=== PATIENT | male | born 1965 | race Hispanic/Latino ===

== ENCOUNTER 2017-04-03 23:50 | Emergency (ER) | payer BC ==
--- NOTE | 2017-04-04 00:08 | ED PDOC ---
HPI: SOB/CHF/COPD Time Seen by Provider: 04/03/17 23:58 Chief Complaint (Nursing): Shortness Of Breath Chief Complaint (Provider): SOB History Per: Patient Additional Complaint(s): Pt is a 51 yo male, PMH of CAD s/p 2 stents placed, High Cholesterol, presents with complaints of SOB. Pt states that he is currently undergoing allergy testing and had skin patches placed yesterday. Pt concnered he might be having a reaction to something. No chest pain or palpitations. Pt also reports having a headache all day. No swelling or rash. Past Medical History Reviewed: Nursing Documentation, Vital Signs Vital Signs: Last Vital Signs Temp 98.2 F 04/04/17 00:10 Pulse 56 L 04/04/17 00:10 Resp 22 04/04/17 01:36 BP 122/72 04/04/17 00:10 Pulse Ox 96 04/04/17 01:36 - Medical History PMH: CAD (w/ [place] in 2000), Hyperlipidemia Denies: Arthritis, CHF, COPD, HIV, HTN, Hypercholesterolemia, Hypothyroidism , Rheumatoid Arthritis - Surgical History Surgical History: Coronary Stent (x3) - Family History Family History: States: Unknown Family Hx - Home Medications Home Medications: Ambulatory Orders Medication Instructions Recorded Aspirin [Aspirin Chewable] 81 mg PO DAILY #0 chew 09/03/15 Atorvastatin [Lipitor] 40 mg PO HS #0 tab 09/03/15 Cephalexin [cephalexin] 500 mg PO BID #10 cap 09/03/15 Clopidogrel [Plavix] 75 mg PO DAILY #0 tab 09/03/15 Ezetimibe [Zetia] 10 mg PO HS #0 tab 09/03/15 Ketorolac Tromethamine [Toradol] 30 mg PO Q6H PRN #0 tab 09/03/15 Metoprolol Tartrate [Lopressor] 25 mg PO HS #0 tab 09/03/15 Sertraline [Zoloft] 100 mg PO HS #0 tab 09/03/15 oxyCODONE/Acetaminophen [Percocet 1 ea PO Q6H PRN #15 tab 03/06/16 5/325 mg Tab] Methylprednisolone [Medrol Dose 4 mg PO DAILY #21 mg 04/04/17 Pack (21 tabs)] - Allergies Allergies/Adverse Reactions: Allergies Allergy/AdvReac Type Severity Reaction Status Date / Time No Known Allergies Allergy Verified 09/01/15 16:46 Wells Criteria for PE - Wells Criteria for Pulmonary Embolism Clinical Signs and Symptoms of DVT: No P.E is #1 Diagnosis, or Equally Likely: No Heart Rate >100: No Immobilization at least 3 days;Surgery previous 4 weeks: No Previous, objectively diagnosed PE or DVT: No Hemoptysis: No Malignancy w/treatment within 6 months, or palliative: No Total Score: 0 Review of Systems ROS Statement: Except As Marked, All Systems Reviewed And Found Negative Respiratory: Positive for: Shortness of Breath Physical Exam - Reviewed Nursing Documentation Reviewed: Yes Vital Signs Reviewed: Yes - Physical Exam Appears: Positive for: Well, Non-toxic, No Acute Distress Head Exam: Positive for: ATRAUMATIC, NORMAL INSPECTION, NORMOCEPHALIC Skin: Positive for: Warm, Rash (Patch testing outlined on back) Eye Exam: Positive for: EOMI, Normal appearance, PERRL ENT: Positive for: Normal ENT Inspection Neck: Positive for: Normal, Painless ROM Cardiovascular/Chest: Positive for: Regular Rate, Rhythm Respiratory: Positive for: CNT, Normal Breath Sounds Gastrointestinal/Abdominal: Positive for: Normal Exam, Bowel Sounds, Soft Back: Positive for: Normal Inspection Extremity: Positive for: Normal ROM Neurologic/Psych: Positive for: Alert, Oriented - Laboratory Results Result Diagrams: 04/04/17 00:30 04/04/17 00:30 - ECG O2 Sat by Pulse Oximetry: 100 Medical Decision Making Medical Decision Making: IV access established and treatment initiated with Solumedrol, Benadryl and Duo neb treatments Labs resulted and reviewed with pt who demonstrated full understanding Dimer elevated, CTA obtianed: Negative Pt doing well on re-eval, no complaints of SOB or chest pain POX: 100% on RA Sent with RX for Medrol dose pack. Advised to contact greenkeeper tomorrow Disposition - Clinical Impression Clinical Impression: Allergic reaction - Patient ED Disposition Is Patient to be Admitted: No - Disposition Disposition: Routine/Home Disposition Time: 04:40 Condition: STABLE Prescriptions: Methylprednisolone [Medrol Dose Pack (21 tabs)] 4 mg PO DAILY #21 mg Instructions: General Allergic Reaction (ED) Forms: [facility] (Urdu)
[2017-04-04] MEDS ORDERED: Albuterol-Ipratrop 3 mg / 0.5 (3 ml) UD INH STA (00:20)
[2017-04-04 00:42] LABS: BASO # 0.1 K/uL (0.0-0.2); BASO % 0.9 % (0.0-2.0); EOS # 0.4 K/uL (0.0-0.7); HEMATOCRIT 46.9 % (35.0-51.0); LYMPH # 2.2 K/uL (1.0-4.3); LYMPH % 36.3 % (20.0-40.0); MEAN CELL VOLUME 88.8 fl (80.0-94.0); MEAN CORPUSCULAR HEMOGLOBIN 30.2 pg (27.0-31.0); MEAN PLATELET VOLUME 9.5 fl (7.2-11.7); MONO # 0.6 K/uL (0.0-0.8); MONO % 9.4 % (0.0-10.0); NEUT # 2.8 K/uL (1.8-7.0); NEUT % 47.4 % (50.0-75.0); NRBC % 0.3 % (0.0-0.0); RED CELL DISTRIBUTION WIDTH 13.2 % (11.5-14.5)
[2017-04-04 00:56] LABS: PARTIAL THROMBOPLASTIN TIME 31.7 Seconds (25.6-37.1)
[2017-04-04 00:58] LABS: ALB/GLOB RATIO 1.6 (1.0-2.1); ALKALINE PHOSPHATASE 96 U/L (38-126); ALT/SGPT 67 U/L (21-72); AST/SGOT 40 U/L (17-59); BILIRUBIN,TOTAL 0.6 mg/dl (0.2-1.3); BLOOD UREA NITROGEN 23 mg/dl (9-20); CALCIUM 8.8 mg/dL (8.4-10.2); CARBON DIOXIDE 28 mmol/L (22-30); CHLORIDE 102 mmol/L (98-107); GFR AFRICAN-AMERICAN > 60; GLUCOSE,RANDOM 98 mg/dL (75-110); SODIUM 134 mmol/l (132-148)
[2017-04-04] MEDS ORDERED: Iodixanol 320 MG/ML 100 ML BOTTLE IV ONE (02:18)
[2017-04-04] MEDS ORDERED: Sodium Chloride 0.9% 50 ML IV ONE (02:18)
[2017-04-04 04:50] VITALS: BP 128/68; PULSE 83; RESP 16; TEMP 98; O2SAT 97
--- NOTE | 2017-04-04 09:45 | CT ---
PROCEDURE: CT Chest with contrast (Pulmonary Angiogram) HISTORY: elevated dimer, SOB COMPARISON: Chest CT with contrast 07/07/2013. TECHNIQUE: Axial computed tomography images were obtained of the chest in the pulmonary arterial phase of enhancement. Coronal and sagittal reformatted images were created and reviewed. Intravenous contrast dose: Omnipaque 300, 96 cc. Radiation dose: Total exam DLP = 385.90 mGy-cm. This CT exam was performed using one or more of the following dose reduction techniques: Automated exposure control, adjustment of the mA and/or kV according to patient size, and/or use of iterative reconstruction technique. FINDINGS: PULMONARY ARTERIES: Unremarkable. No pulmonary embolism. AORTA: No acute findings. No thoracic aortic aneurysm. LUNGS: A solitary 1 cm bullous in the left lower lobe. No nodule, mass or pulmonary consolidation. PLEURAL SPACES: Unremarkable. No effusion or pneuomothorax. HEART: Coronary artery atherosclerosis and probable stent placement are identified. No cardiomegaly. No significant pericardial effusion. LYMPH NODES: No lymphadenopathy. BONES, CHEST WALL: Unremarkable. No fracture or destructive lesion OTHER FINDINGS: Unremarkable. IMPRESSION: Unremarkable CT pulmonary angiogram. No pulmonary embolus. No infiltrate, pleural or pericardial effusion or cardiomegaly. Coronary artery atherosclerosis appreciate with likely stent deployment. No significant lymphadenopathy throughout the chest. Stable chest CT compared to 07/07/2013 CT.
--- NOTE | 2017-04-04 09:56 | RAD ---
HISTORY: SOB COMPARISON: Chest radiographs 07/07/2013. TECHNIQUE: Chest PA and lateral FINDINGS: LUNGS: No active pulmonary disease. PLEURA: No significant pleural effusion identified. No pneumothorax apparent. CARDIOVASCULAR: Normal. OSSEOUS STRUCTURES: No significant abnormalities. VISUALIZED UPPER ABDOMEN: Normal. OTHER FINDINGS: None. IMPRESSION: No interval acute cardiopulmonary disease appreciated.
--- NOTE | 2017-04-04 10:57 | CARD ---
APPROVED REPORT EKG Measurement Heart [id number] MA [id number] <Conclusion> Normal sinus rhythm with sinus arrhythmia Normal ECG
== END 2017-04-04 05:09 | disposition home or self-care (01) ==
LOC: H.ER 23:50
DX: T78.40XA Allergy, unspecified, initial encounter (principal); J44.9 Chronic obstructive pulmonary disease, unspecified; Z95.5 Presence of coronary angioplasty implant and graft; Z79.82 Long term (current) use of aspirin; E78.00 Pure hypercholesterolemia, unspecified
CPT/HCPCS: 71020; 71275; 80053; 83880; 84484; 85025; 85378; 85610; 85730; 93005; 94640; 96374; 99283; J2930; Q9967